=== PATIENT | female | born 2000 | race African-American/Black ===

== ENCOUNTER 2019-09-01 01:48 | Outpatient (CLI) | payer MEDICAID ==
[2019-09-01 04:26] LABS: Bilirubin,Urine NEG (Negative); Blood,Urine NEG (Negative); Color,Urine Yellow (Yellow); Protein,Urine <15 mg/dL mg/dL (Negative); RBC,Urine < 1.0 /HPF (0.0-6.0); Urobilinogen,Urine < 2.0 mg/dL (<2.0)
[2019-09-01 04:35] LABS: Mucus,Urine FEW /HPF
[2019-09-01 04:39] LABS: Bacteria,Urine 1+ /HPF (Negative)
[2019-09-01 04:55] VITALS: BP 103/59
== END 2019-09-01 04:57 | disposition home or self-care (01) ==
LOC: TRG 01:48 → APU 01:50 → TRG 04:57
PROVIDERS: ATTEND Obstetrics & Gynecology
DX: O26.893 Other specified pregnancy related conditions, third trimester (principal); R10.9 Unspecified abdominal pain; Z3A.37 37 weeks gestation of pregnancy
CPT/HCPCS: 59025; 81001